=== PATIENT | male | born 1995 | race Caucasian/White ===

== ENCOUNTER 2024-12-30 04:51 | Emergency (ER) | payer OTHER ==
[~2024-12-30] VITALS: Ht 165.1 cm; Wt 113.0 kg
[2024-12-30 05:11] VITALS: O2SAT 96
[2024-12-30] MEDS: IBUPROFEN 600MG TABLET PO ONE (05:53)
[2024-12-30] MEDS: ACETAMINOPHEN 325MG TABLET PO ONE (05:54)
[2024-12-30 06:04] LABS: CLARITY URINE CLEAR (CLEAR); COLOR URINE DARK YELLOW (YELLOW); GLUCOSE URINE NEGATIVE (NEGATIVE); KETONES URINE TRACE (NEGATIVE); LEUKOCYTE ESTERASE URINE NEGATIVE (NEGATIVE); NITRITE URINE NEGATIVE (NEGATIVE); OCCULT BLOOD URINE NEGATIVE (NEGATIVE); PH URINE 5.5 (4.5-8.0); PROTEIN URINE TRACE (NEGATIVE); SPECIFIC GRAVITY URINE 1.029 (1.005-1.030); UROBILINOGEN URINE 1.0 E.U./dL (0.2-1.0)
[2024-12-30 06:50] LABS: BACTERIA URINE NONE SEEN; RBC URINE NONE SEEN /hpf (0-2); SQUAMOUS EPITHELIAL CELL URINE NONE SEEN /lpf (RARE/1+); WBC URINE 0-2 /hpf (0-2)
[2024-12-30] MEDS ORDERED: IBUP-1455 MT (07:02)
[2024-12-30 07:09] VITALS: BP 131/81; PULSE 89; RESP 15; TEMP 37.2; O2SAT 97
== END 2024-12-30 07:11 | disposition home or self-care (01) ==
LOC: ER 05:45
DX: B34.9 Viral infection, unspecified (principal); E11.9 Type 2 diabetes mellitus without complications
CPT/HCPCS: 71045; 81003; 99284